=== PATIENT | female | born 1975 | race Caucasian/White ===

== ENCOUNTER 2016-03-21 10:22 | Emergency (ER) | payer OTHER ==
[2016-03-21] MEDS ORDERED: ONDANSETRON 4 MG/2 ML VIAL IVP ONE (10:45)
[2016-03-21] MEDS ORDERED: NS 1,000 ML IV ONE ×2 (10:45→11:18)
--- NOTE | 2016-03-21 10:48 | UCPHY ---
H & P Time Seen by Provider: 03/21/16 10:29 Patient Type: Established HPI/ROS: 41-year-old female presents complaining of diagnosed with influenza a yesterday and started on Tamiflu and prednisone at that time comes in today with profuse vomiting overnight and feels she is very dehydrated. Review of systems As per HPI- vomiting cough fevers chills General positive fevers positive chills no weakness HEENT no eye pain no eye discharge. No eye redness, no sore throat Respiratory positive cough, no shortness of breath Cardiac no chest pain, no peripheral edema GI no abdominal pain, no diarrhea, no constipation, positive nausea, positive vomiting no flank pain, no hematuria, no dysuria Musculoskeletal no myalgias, no joint pain Heme no easy bruising, no easy bleeding Endo no polyuria, no polydipsia Skin no rashes, no pruritus Neuro no syncope, no dizziness, no headaches Psych is no suicidal ideation, no homicidal ideation Past Medical/Surgical History: Bipolar, migraines Social History: No alcohol, no drugs Smoking Status: Never smoked Physical Exam: 41-year-old female alert and oriented no acute distress nontoxic appearance afebrile HEENT atraumatic normocephalic, extraocular muscles intact, anicteric Oropharynx negative for erythema negative exudate, tolerating her own secretions Neck supple no meningismus Lungs clear to auscultation bilaterally Heart regular rate and rhythm without murmur rub or gallop Abdomen nondistended normoactive bowel sounds soft nontender Back no CVA tenderness, no step-offs, no spinal tenderness Extremities no cyanosis clubbing or edema Neuro alert and oriented, no focal deficits Constitutional: Initial Vital Signs Temperature (C) 36.8 C 03/21/16 10:43 Heart Rate 72 03/21/16 10:43 Respiratory Rate 14 03/21/16 10:43 Blood Pressure 113/74 03/21/16 10:43 O2 Sat (%) 97 03/21/16 10:43 O2 Delivery Mode Room Air Allergies/Adverse Reactions: penicillin V potassium [From Pen-Vee K] Allergy (Verified 03/21/16 10:40) Home Medications: Medication Instructions Recorded [place] Carbonate 03/21/16 Ondansetron Odt [Zofran Odt 4 mg 4 mg PO Q4 PRN #10 tab 03/21/16 (*)] Oxycarbonate 03/21/16 Zomig 03/21/16 Medical Decision Making ED Course/Re-evaluation: Patient seen and evaluated after being diagnosed with influenza a yesterday, started on Tamiflu and prednisone by primary care physician presents today with several episodes of vomiting and feeling dehydrated. Impression Vomiting, acute gastritis Dehydration Patient given 2 L normal saline and ondansetron 4 mg IV push She is now tolerating p.o. without difficulty Given a take-home bottle of ondansetron Also given a prescription for ondansetron Advised to return if not feeling well, to rest drink plenty fluids and to follow up with her primary care physician - Data Points Laboratory Results: Laboratory Results 03/21/16 10:47 03/21/16 10:47 03/21/16 10:47 WBC 9.09 10^3/uL (3.80-9.50) RBC 4.79 10^6/uL (4.18-5.33) Hgb 15.2 g/dL (12.6-16.3) Hct 41.8 % (38.0-47.0) MCV 87.3 fL (81.5-99.8) MCH 31.7 pg (27.9-34.1) MCHC 36.4 g/dL (32.4-36.7) RDW 11.9 % (11.5-15.2) Plt Count 263 10^3/uL (150-400) MPV 9.1 fL (8.7-11.7) Neut % (Auto) 73.8 % (39.3-74.2) Lymph % (Auto) 12.2 L % (15.0-45.0) [place] % (Auto) 13.5 H % (4.5-13.0) Eos % (Auto) 0.0 L % (0.6-7.6) Baso % (Auto) 0.2 L % (0.3-1.7) Nucleat RBC Rel Count 0.0 % (0.0-0.2) Absolute Neuts (auto) 6.70 H 10^3/uL (1.70-6.50) Absolute Lymphs (auto) 1.11 10^3/uL (1.00-3.00) Absolute Monos (auto) 1.23 H 10^3/uL (0.30-0.80) Absolute Eos (auto) 0.00 L 10^3/uL (0.03-0.40) Absolute Basos (auto) 0.02 10^3/uL (0.02-0.10) Absolute Nucleated RBC 0.00 10^3/uL (0-0.01) Immature Gran % 0.3 % (0.0-1.1) Immature Gran # 0.03 10^3/uL (0.00-0.10) Sodium 138 mEq/L (134-144) Potassium 4.5 mEq/L (3.5-5.2) Chloride 101 mEq/L (97-110) Carbon Dioxide 27 mEq/l (22-31) Anion Gap 10 mEq/L (8-16) BUN 10 mg/dL (7-23) Creatinine 0.7 mg/dL (0.6-1.0) Estimated GFR > 60 Glucose 100 mg/dL (70-100) Calcium 9.2 mg/dL (8.5-10.4) Total Bilirubin 0.7 mg/dL (0.1-1.4) AST 25 IU/L (14-46) ALT 28 IU/L (9-52) Alkaline Phosphatase 68 IU/L (38-126) Total Protein 7.8 g/dL (6.3-8.2) Albumin 4.1 g/dL (3.5-5.0) Lipase 95.0 IU/L (23-300) Medications Given: Discontinued Medications Sodium Chloride (Ns) 1,000 mls @ 0 mls/hr IV ONCE ONE PRN Reason: Wide Open Stop: 03/21/16 10:46 Last Admin: 03/21/16 10:59 Dose: 1,000 mls Sodium Chloride (Ns) 1,000 mls @ 0 mls/hr IV ONCE ONE PRN Reason: Wide Open Stop: 03/21/16 11:19 Last Admin: 03/21/16 11:42 Dose: 1,000 mls Methylprednisolone Sodium Succinate (Solu-Medrol) 125 mg IVP EDNOW ONE Stop: 03/21/16 12:14 Last Admin: 03/21/16 12:18 Dose: 125 mg Ondansetron HCl (Zofran) 4 mg IVP EDNOW ONE Stop: 03/21/16 10:46 Last Admin: 03/21/16 11:01 Dose: 4 mg Ondansetron HCl (Zofran Odt 4 Mg Prepack#2) 1 btl ALEJANDRA COTTO ONE Stop: 03/21/16 11:53 Last Admin: 03/21/16 12:18 Dose: 1 btl Departure - Departure Disposition: Home, Routine, Self-Care Clinical Impression: Dehydration, Vomiting Condition: Good Instructions: Dehydration (ED), Gastritis (ED) Additional Instructions: Resume your prednisone tomorrow morning with today's dose. Take with food. Small, frequent sips of clear liquids. If tolerating, you my introduce bland foods slowly. Take Ondansetron 1 tablet every 4 hours as needed for nausea or vomiting. Referrals: Azul Torres MD [Primary Care Provider] - As per Instructions Prescriptions: Ondansetron Odt [Zofran Odt 4 mg (*)] 4 mg PO Q4 PRN #10 tab PRN Reason: Nausea/Vomiting, Use 1st - PQRS PQRS Measurement: Not applicable
[2016-03-21 11:03] LABS: % IMMATURE GRANULYOCYTES 0.3 % (0.0-1.1); ABSOLUTE IMMATURE GRANULOCYTES 0.03 10^3/uL (0.00-0.10); ADD DIFF? NO; ADD MORPH? NO; ADD SCAN? NO; ATYPICAL LYMPHOCYTE FLAG 10 (0-99); FRAGMENT RBC FLAG 0 (0-99); HEMATOCRIT 41.8 % (38.0-47.0); HEMOGLOBIN 15.2 g/dL (12.6-16.3); LEFT SHIFT FLG 0 (0-99); LIPEMIA HEMOLYSIS FLAG 90 (0-99); MEAN CELL HEMOGLOBIN 31.7 pg (27.9-34.1); MEAN CELL HEMOGLOBIN CONCENTR. 36.4 g/dL (32.4-36.7); MEAN CELL VOLUME 87.3 fL (81.5-99.8); MEAN PLATELET VOLUME 9.1 fL (8.7-11.7); PLATELET CLUMPS FLAG 10 (0-99); PLATELET COUNT 263 10^3/uL (150-400); RED BLOOD CELL COUNT 4.79 10^6/uL (4.18-5.33); RED CELL DISTRIBUTION WIDTH 11.9 % (11.5-15.2)
[2016-03-21 11:20] LABS: ALANINE AMINOTRANSFERASE 28 IU/L (9-52); ALBUMIN 4.1 g/dL (3.5-5.0); ALKALINE PHOSPHATASE 68 IU/L (38-126); ANION GAP 10 mEq/L (8-16); ASPARTATE AMINOTRANSFERASE 25 IU/L (14-46); BILIRUBIN,TOTAL 0.7 mg/dL (0.1-1.4); CALCIUM 9.2 mg/dL (8.5-10.4); CARBON DIOXIDE 27 mEq/l (22-31); CHLORIDE 101 mEq/L (97-110); CREATININE 0.7 mg/dL (0.6-1.0); GLOMERULAR FILTRATION RATE > 60; GLUCOSE 100 mg/dL (70-100); POTASSIUM 4.5 mEq/L (3.5-5.2); SODIUM 138 mEq/L (134-144); TOTAL PROTEIN 7.8 g/dL (6.3-8.2)
[2016-03-21] MEDS ORDERED: ONDANSETRON 4MG PREPACK#2 BTL TAKEHOME ONE (11:52)
[2016-03-21] MEDS ORDERED: methylPREDNISolone SOD SUCC 125 MG/2 ML VIAL ONE (12:12)
[2016-03-21] MEDS ORDERED: methylPREDNISolone SOD SUCC 125 MG/2 ML VIAL IVP ONE (12:13)
[2016-03-21 12:29] VITALS: BP 105/66; PULSE 64; RESP 16; TEMP 97.5; O2SAT 99
== END 2016-03-21 12:29 | disposition home or self-care (01) ==
LOC: CED 10:22
DX: E86.0 Dehydration (principal); K29.70 Gastritis, unspecified, without bleeding; J11.1 Influenza due to unidentified influenza virus with other respiratory manifestations
CPT/HCPCS: 80053-PO; 83690-PO; 85025-PO; 96361-PO; 96374-PO; 96375-PO; 99215-PO; G0463-PO; J2405

== ENCOUNTER 2017-12-07 02:55 | Emergency (ER) | payer OTHER ==
[2017-12-07] MEDS ORDERED: KETOROLAC 15 MG/1 ML SDV IVP ONE (03:15)
[2017-12-07] MEDS ORDERED: KETOROLAC 15 MG/1 ML SDV ONE (03:16)
[2017-12-07 03:24] LABS: PLATELET COUNT 293 10^3/uL (150-400)
--- NOTE | 2017-12-07 03:30 | EDPHY ---
H & P Time Seen by Provider: 12/07/17 03:08 HPI/ROS: Chief Complaint: Left chest and back spasm HPI: 42-year-old woman is presenting with pain in her left back and left chest. The patient states that she has had increased stress at work. She has been doing a lot of typing. She feels that she was sitting in cracked a yesterday while typing and started developing spasm in her left back. This developed in this and spasm into her left chest yesterday afternoon. She is not taking any medication for this. She woke up this morning with worsening spasm in pain. Does hurt to move. Particular movements cause a significant spasm. She has also had some pain with deep inspiration which causes spasm. No cough. No fevers or chills. Pain is about an 8/10. No cough. No recent travel or periods of immobility. No leg pain or swelling. Does not have a history of similar episodes in the past. ROS: 10 systems were reviewed and were negative except those elements noted in the HPI. PMH: Bipolar disorder Social History: No smoking, no alcohol, no recreational drug use Family History: non-contributory Physical Exam: Gen: Awake, Alert, No Distress HEENT: Nose: no rhinorrhea Eyes: PERRLA, EOMI Mouth: Moist mucosa Neck: Supple, no JVD Chest: Left chest wall tenderness in the pectoralis, lungs clear to auscultation Heart: S1, S2 normal, no murmur Abd: Soft, non-tender, no guarding Back: no CVA tenderness, no midline tenderness left paraspinal tenderness medial to the left scapula and over the scapula. Ext: no edema, non-tender Skin: no rash Neuro: CN II-XII intact, Sensation grossly intact, Strength 5/5 in bilateral upper and lower extremities - Medical/Surgical History Hx Asthma: No Hx Chronic Respiratory Disease: No Hx Diabetes: No Hx Cardiac Disease: No Hx Renal Disease: No Hx Cirrhosis: No Hx Alcoholism: No Hx HIV/AIDS: No Hx Splenectomy or Spleen Trauma: No Other PMH: bipolar, foot surgery, migraine - Social History Smoking Status: Never smoked Constitutional: Initial Vital Signs Temperature (C) 36.7 C 12/07/17 02:57 Heart Rate 61 12/07/17 02:57 Respiratory Rate 16 12/07/17 02:57 Blood Pressure 111/81 H 12/07/17 02:57 O2 Sat (%) 97 12/07/17 02:57 O2 Delivery Mode Room Air Allergies/Adverse Reactions: penicillin V potassium [From Pen-Velynn K] Allergy (Verified 12/07/17 03:23) Home Medications: Medication Instructions Recorded [place] Carbonate 03/21/16 Oxycarbonate 03/21/16 Medical Decision Making - Diagnostics EKG Interpretation: ECG time 3:06 a.m., sinus rhythm with a rate of 66, normal axis, normal intervals, no acute ST or T-wave changes. Impression: Normal ECG. Imaging Results: CT scan of the chest is negative for PE or other intrathoracic process per Dr. Smith. Imaging: Discussed imaging studies w/ mail caller Radiologist ED Course/Re-evaluation: Patient's ECG is normal. Her D-dimer is elevated at 1.85. Will obtain a CT scan of the chest. CT scan of the chest is negative. Troponin is negative. Normal ECG. Patient' s pain has resolved after Toradol. I think her symptoms are consistent with back and chest wall spasm. She cannot take anti-inflammatories regularly because of her lithium. I will recommend acetaminophen. Will give her some acetaminophen with hydrocodone for breakthrough pain only if it becomes severe. Will also apply a Lidoderm patch. Will follow up with primary care physician in 3-4 days for further evaluation. - Data Points Laboratory Results: Laboratory Results 12/07/17 03:15 12/07/17 03:15 12/07/17 12/07/17 12/07/17 03:15 03:15 03:15 WBC RBC Hgb Hct MCV MCH MCHC RDW Plt Count MPV Neut % (Auto) Lymph % (Auto) [place] % (Auto) Eos % (Auto) Baso % (Auto) Nucleat RBC Rel Count Absolute Neuts (auto) Absolute Lymphs (auto) Absolute Monos (auto) Absolute Eos (auto) Absolute Basos (auto) Absolute Nucleated RBC Immature Gran % Immature Gran # D-Dimer 1.85 ug/mLFEU H ug/mLFEU (0.00-0.50) Sodium 138 mEq/L mEq/L (135-145) Potassium 4.2 mEq/L mEq/L (3.3-5.0) Chloride 105 mEq/L mEq/L (97-110) Carbon Dioxide 25 mEq/l mEq/l (22-31) Anion Gap 8 mEq/L mEq/L (8-16) BUN 8 mg/dL mg/dL (7-23) Creatinine 0.7 mg/dL mg/dL (0.6-1.0) Estimated GFR > 60 Glucose 100 mg/dL mg/dL (70-100) Calcium 9.6 mg/dL mg/dL (8.5-10.4) POC Troponin I Beta HCG, Qual NEGATIVE 12/07/17 12/07/17 03:15 03:12 WBC 10.36 10^3/uL H 10^3/uL (3.80-9.50) RBC 4.88 10^6/uL 10^6/uL (4.18-5.33) Hgb 15.0 g/dL g/dL (12.6-16.3) Hct 43.6 % % (38.0-47.0) MCV 89.3 fL fL (81.5-99.8) MCH 30.7 pg pg (27.9-34.1) MCHC 34.4 g/dL g/dL (32.4-36.7) RDW 12.4 % % (11.5-15.2) Plt Count 293 10^3/uL 10^3/uL (150-400) MPV 9.5 fL fL (8.7-11.7) Neut % (Auto) 63.1 % % (39.3-74.2) Lymph % (Auto) 23.6 % % (15.0-45.0) [place] % (Auto) 11.0 % % (4.5-13.0) Eos % (Auto) 1.7 % % (0.6-7.6) Baso % (Auto) 0.3 % % (0.3-1.7) Nucleat RBC Rel Count 0.0 % % (0.0-0.2) Absolute Neuts (auto) 6.53 10^3/uL H 10^3/uL (1.70-6.50) Absolute Lymphs (auto) 2.45 10^3/uL 10^3/uL (1.00-3.00) Absolute Monos (auto) 1.14 10^3/uL H 10^3/uL (0.30-0.80) Absolute Eos (auto) 0.18 10^3/uL 10^3/uL (0.03-0.40) Absolute Basos (auto) 0.03 10^3/uL 10^3/uL (0.02-0.10) Absolute Nucleated RBC 0.00 10^3/uL 10^3/uL (0-0.01) Immature Gran % 0.3 % % (0.0-1.1) Immature Gran # 0.03 10^3/uL 10^3/uL (0.00-0.10) D-Dimer Sodium Potassium Chloride Carbon Dioxide Anion Gap BUN Creatinine Estimated GFR Glucose Calcium POC Troponin I 0.00 ng/mL ng/mL (0.00-0.08) Beta HCG, Qual Medications Given: Discontinued Medications Ketorolac Tromethamine (Toradol) 15 mg IVP EDNOW ONE Stop: 12/07/17 03:16 Last Admin: 12/07/17 03:20 Dose: 15 mg Point of Care Test Results: Chemistry 12/07/17 03:12 POC Troponin I 0.00 ng/mL ng/mL (0.00-0.08) Departure - Departure Disposition: Home, Routine, Self-Care Clinical Impression: Chest wall pain Condition: Good Instructions: Chest Wall Pain (ED) Additional Instructions: You may take acetaminophen, 1000 mg every 6 hours. For severe pain you may take acetaminophen with hydrocodone. Do not drive or operate heavy machinery when on this medication. You may replace a Lidoderm patch every 24 hr, these are available over-the- counter. Apply ice for 15 minutes of every hour while awake. Make sure to remain active. Did do not lay in bed or sit in a chair for long periods. Follow up with your primary care physician in 3-4 days for further evaluation. Return to the emergency depart for increasing pain, shortness of breath, numbness, weakness, or any other concerns. Referrals: Roel Castillo MD [Medical Doctor] - As per Instructions
[2017-12-07] MEDS ORDERED: IOPAMIDOL (ISOVUE 370) 100 ML BTL IV ONE (03:47)
[2017-12-07] MEDS ORDERED: HYDROCOD/APAP 5/325 PREPACK#6 BTL TAKEHOME ONE (05:01)
[2017-12-07] MEDS ORDERED: LIDOCAINE 4%/MENTHOL 1% PATCH TD ONE (05:01)
--- NOTE | 2017-12-07 05:05 | CPEKG ---
Test Reason : OPEN Blood Pressure : / mmHG Vent. Rate : 066 BPM Atrial Rate : 066 BPM P-R Int : 189 ms QRS Dur : 088 ms QT Int : 420 ms P-R-T Axes : 075 064 033 degrees QTc Int : 441 ms Sinus rhythm Confirmed by Lucho Palma ([id number]) on 12/07/2017 5:05:01 AM Referred By: Confirmed By:Lucho Palma
[2017-12-07 05:17] VITALS: BP 112/71
== END 2017-12-07 05:17 | disposition home or self-care (01) ==
LOC: EDUNIT#
DX: R07.89 Other chest pain (principal)
CPT/HCPCS: 84484-PO; 96374; J1885; Q9967

== ENCOUNTER → 2018-06-05 | Outpatient (CLI) | payer OTHER | LOC: CIMAGING 07:44 | PROVIDERS: ATTEND Family Medicine | DX: K76.89 Other specified diseases of liver (principal); E55.9 Vitamin D deficiency, unspecified; Z00.00 Encounter for general adult medical examination without abnormal findings | CPT/HCPCS: 76705-PO; 76856-PO ==